=== PATIENT | male | born 1960 | race Caucasian/White ===

== ENCOUNTER 2024-10-31 14:35 | Outpatient (CLI) | payer OTHER ==
[2024-10-31 15:26] LABS: Hematocrit 40.0 % (38.8-50.0); Hemoglobin 13.0 g/dL (13.5-17.5); Mean Corpuscular Hemoglobin 29.6 pg (27.0-33.0); Mean Corpuscular Volume 91.1 fL (81.2-95.1); Platelet Count 269 10x3/uL (150-450); Red Blood Cell (RBC) Count 4.39 10x6/uL (4.32-5.72); White Blood Cell (WBC) Count 5.65 10x3/uL (3.5-10.5)
[2024-10-31 15:45] LABS: Anion Gap 16 mmol/L (10-20); BUN (Urea Nitrogen) 15 mg/dL (8.4-25.7); Calc. Creatinine Clearance 0 mL/min (70-130); Calcium 8.7 mg/dL (7.8-10.44); Carbon Dioxide 22 mmol/L (23-31); Chloride 108 mmol/L (98-107); Glucose 96 mg/dL (80-115); Potassium 3.9 mmol/L (3.5-5.1); Sodium 142 mmol/L (136-145)
== END 2024-10-31 14:36 | disposition home or self-care (01) ==
LOC: CSHLAB 14:35
PROVIDERS: ATTEND Surgery
DX: Z01.818 Encounter for other preprocedural examination (principal)
CPT/HCPCS: 80048; 85027; 93005; 93010

== ENCOUNTER 2024-11-03 05:55 | Day surgery (SDC) | payer OTHER ==
[2024-11-03] MEDS ORDERED: Lidocaine 2% MPF 10 ML AMP (For Epidural Use) ONE (06:16)
[2024-11-03] MEDS ORDERED: Bupivacaine/Epinephrine 0.25% 30 ML VIAL ONE (06:18)
[2024-11-03] MEDS ORDERED: Lidocaine 1% PF 5 ML VIAL ONE (06:23)
[2024-11-03] MEDS ORDERED: Rocuronium Bromide 10 MG/ML (10ML VIAL) ONE (06:23)
[2024-11-03] MEDS ORDERED: PROPOFOL 20 ML ONE ×2 (06:23→08:19)
[2024-11-03] MEDS ORDERED: Ondansetron PF 4 MG/2 ML Vial ONE (06:23)
[2024-11-03] MEDS ORDERED: SUGAMMADEX SODIUM 200 MG/2 ML VIAL ONE (06:24)
[2024-11-03] MEDS ORDERED: Ketorolac Tromethamine 30 MG (1 mL) VIAL ONE (07:12)
[2024-11-03] MEDS ORDERED: PHENYLEPHRINE-NS 100 MCG/ML 10 ML SYRINGE ONE ×2 (07:48→09:04)
[2024-11-03] MEDS ORDERED: AFRIN NASAL MIST 15 ML BOT ONE (08:44)
[2024-11-03] MEDS ORDERED: Oxymetazoline HCl 0.05% (15 ML) ONE (08:58)
[2024-11-03] MEDS ORDERED: Bupivacaine HCl 0.5%/Epinephrine 1:200,000/PF 30 ml Vial ONE (08:58)
== END 2024-11-03 10:50 | disposition home or self-care (01) ==
LOC: CSHSDC 05:55
PROVIDERS: ATTEND Otolaryngology
PROC: 0CBS8ZX Excision of Larynx, Via Natural or Artificial Opening Endoscopic, Diagnostic (ICD-10-PCS; principal; 2024-11-03)
DX: C10.9 Malignant neoplasm of oropharynx, unspecified (principal); J38.4 Edema of larynx; Z87.891 Personal history of nicotine dependence; Z98.890 Other specified postprocedural states; Z88.0 Allergy status to penicillin
CPT/HCPCS: 71045; 88305; 88331; A6258; B4087; C1788; J0169; J1100; J1642; J1885; J2405; J2704; J3010; J3490

== ENCOUNTER 2024-11-04 22:39 | Emergency (ER) | payer OTHER ==
[2024-11-05 01:12] LABS: #Basophils Less than 0.03 10x3/uL (0.0-0.2); #Eosinophils 0.06 10x3/uL (0.0-0.5); #Monocytes 0.88 10x3/uL (0.0-1.1); #Neutrophils 8.40 10x3/uL (1.5-8.4); %Basophils 0.1 % (0.0-2.0); %Eosinophils 0.6 % (0.0-6.0); %Lymphocytes 10.5 % (18.0-47.0); %Monocytes 8.4 % (0.0-10.0); %Neutrophils 80.1 % (40.0-75.0); Hematocrit 40.7 % (38.8-50.0); Hemoglobin 13.1 g/dL (13.5-17.5); Mean Corpuscular Hemoglobin 29.6 pg (27.0-33.0); Mean Corpuscular Volume 91.9 fL (81.2-95.1); Platelet Count 242 10x3/uL (150-450); Red Blood Cell (RBC) Count 4.43 10x6/uL (4.32-5.72); White Blood Cell (WBC) Count 10.48 10x3/uL (3.5-10.5)
[2024-11-05 01:32] LABS: ALT (SGPT) 39 U/L (Less than 45); AST (SGOT) 44 U/L (11-34); Albumin 3.8 g/dL (3.1-4.5); Alkaline Phosphatase 64 U/L (40-110); Anion Gap 11 mmol/L (10-20); BUN (Urea Nitrogen) 17 mg/dL (8.4-25.7); Bilirubin, Total 0.3 mg/dL (0.3-1.2); Calc. Creatinine Clearance 0 mL/min (70-130); Calcium 8.5 mg/dL (7.8-10.44); Carbon Dioxide 24 mmol/L (23-31); Chloride 109 mmol/L (98-107); Globulin 3.3 g/dL (2.4-3.5); Glucose 125 mg/dL (80-115); Lipase 26 U/L (8-78); Potassium 4.1 mmol/L (3.5-5.1); Sodium 140 mmol/L (136-145)
[2024-11-05] MEDS ORDERED: Ketorolac Tromethamine 30 MG (1 mL) VIAL ONE (02:20)
== END 2024-11-05 02:30 | disposition home or self-care (01) ==
LOC: CSHERS 22:39
DX: R10.13 Epigastric pain (principal); C14.0 Malignant neoplasm of pharynx, unspecified
CPT/HCPCS: 36415; 74177; 80053; 83690; 85025; J1885